=== PATIENT | female | born 1960 | race Caucasian/White ===

== ENCOUNTER → 2023-07-23 07:26 | Outpatient (REF) | payer OTHER, SELFPAY ==
[2023-07-23 08:10] LABS: % Basophils 0.3 % (0-2); % Eosinophils 3.7 % (0-6); % Immature Granulocytes 0.3 % (0-0.5); % Lymphocytes 34.7 % (20.5-51.1); % Monocytes 5.9 % (1.7-9.3); % Neutrophils 55.1 % (42.2-75.2); Absolute Eosinophils 0.2 10^3/uL (0-0.7); Absolute Lymphocytes 2.2 10^3/uL (1.2-3.4); Absolute Monocytes 0.4 10^3/uL (0.1-0.6); Absolute Neutrophils 3.5 10^3/uL (1.4-6.5); Hematocrit 41.9 % (37.0-47.0); Hemoglobin 14.3 g/dL (12.0-16.0); Mean Corp Hgb Conc. 34.1 g/dL (33.0-37.0); Mean Corpuscular Hgb 33.5 pg (27.0-31.0); Mean Corpuscular Volume 98.1 fL (81.0-99.0); Mean Platelet Volume 9.8 fL (7.4-10.4); Nucleated Red Blood Cells % 0 %; Platelet Count 248 10^3/uL (130-400); Red Blood Cell Count 4.27 10^6/uL (4.20-5.40); Red Cell Dist. Width 12.1 % (11.5-14.5); White Blood Cell Count 6.3 10^3/uL (4.8-10.8)
[2023-07-23 08:37] LABS: ALT (SGPT) 29 U/L (0-35); AST (SGOT) 38 U/L (14-36); Albumin 4.8 g/dl (3.5-5.0); Alkaline Phosphatase 81 U/L (38-126); Blood Urea Nitrogen 15 mg/dl (7-17); Calcium 9.4 mg/dl (8.4-10.2); Carbon Dioxide 28 mmol/L (22-30); Chloride 102 mmol/L (98-107); Glucose 106 mg/dl (70-99); HDL Cholesterol 68 mg/dl; Iron 107 ug/dl (37-170); LDL Cholesterol, Calculated 62 mg/dl; Potassium 3.9 mmol/L (3.5-5.1); Sodium 141 mmol/L (135-145); Total Bilirubin 0.6 mg/dl (0.2-1.3); Total Cholesterol 140 mg/dl (50-199); Total Protein 7.7 g/dl (6.3-8.2); Triglyceride 54 mg/dl (10-149); Very Low Density Lipoprotein 10 mg/dl (0-30); eGFR > 60.00
[2023-07-23 08:45] LABS: Percent Saturation 29 % (20-50); Total Iron Binding Capacity 362 ug/dl (265-497)
[2023-07-23 08:54] LABS: Vitamin D, 25-OH*** 56.9 ng/mL (30-80)
[2023-07-23 09:07] LABS: TSH Reflex To Free T4 2.04 uIU/ml (0.47-4.68)
[2023-07-23 09:27] LABS: Vitamin B12 396 pg/ml (239-931)
== END ==
LOC: RAD 07:26
PROVIDERS: ATTENDING PHYSICIAN Nurse Practitioner Family
DX: R91.1 Solitary pulmonary nodule (principal); F41.1 Generalized anxiety disorder; R53.82 Chronic fatigue, unspecified; K21.9 Gastro-esophageal reflux disease without esophagitis; E55.9 Vitamin D deficiency, unspecified; E78.2 Mixed hyperlipidemia; M85.89 Other specified disorders of bone density and structure, multiple sites
CPT/HCPCS: 36415; 71250; 80053; 80061; 82306; 82607; 82728; 83540; 83550; 84443; 85025

== ENCOUNTER → 2023-09-11 09:59 | Outpatient (REF) | payer OTHER, SELFPAY ==
[2023-09-11 13:07] LABS: Cortisol, Random 8.6 ug/dl
[2023-09-11 14:35] LABS: Glycohemoglobin (HgbA1c) 5.3 % (4.0-5.6)
== END ==
LOC: REG 09:59
PROVIDERS: ATTENDING PHYSICIAN Nurse Practitioner Family
DX: R73.01 Impaired fasting glucose (principal); R53.82 Chronic fatigue, unspecified
CPT/HCPCS: 36415; 82533; 83036

== ENCOUNTER → 2023-11-23 11:39 | Outpatient (REF) | payer OTHER, SELFPAY ==
[2023-11-23 14:58] LABS: % Basophils 0.3 % (0-2); % Eosinophils 2.3 % (0-6); % Immature Granulocytes 0.3 % (0-0.5); % Lymphocytes 27.8 % (20.5-51.1); % Monocytes 5.7 % (1.7-9.3); % Neutrophils 63.6 % (42.2-75.2); Absolute Eosinophils 0.2 10^3/uL (0-0.7); Absolute Lymphocytes 1.8 10^3/uL (1.2-3.4); Absolute Monocytes 0.4 10^3/uL (0.1-0.6); Absolute Neutrophils 4.1 10^3/uL (1.4-6.5); Hematocrit 36.7 % (37.0-47.0); Mean Corp Hgb Conc. 35.4 g/dL (33.0-37.0); Mean Corpuscular Hgb 34.1 pg (27.0-31.0); Mean Corpuscular Volume 96.3 fL (81.0-99.0); Mean Platelet Volume 10.1 fL (7.4-10.4); Nucleated Red Blood Cells % 0 %; Platelet Count 209 10^3/uL (130-400); Red Blood Cell Count 3.81 10^6/uL (4.20-5.40); White Blood Cell Count 6.5 10^3/uL (4.8-10.8)
[2023-11-23 15:44] LABS: ALT (SGPT) 29 U/L (0-35); AST (SGOT) 37 U/L (14-36); Albumin 4.6 g/dl (3.5-5.0); Alkaline Phosphatase 79 U/L (38-126); Blood Urea Nitrogen 16 mg/dl (7-17); Calcium 9.4 mg/dl (8.4-10.2); Carbon Dioxide 28 mmol/L (22-30); Chloride 105 mmol/L (98-107); Glucose 84 mg/dl (70-99); HDL Cholesterol 63 mg/dl; Iron 160 ug/dl (37-170); LDL Cholesterol, Calculated 86 mg/dl; Potassium 3.9 mmol/L (3.5-5.1); Sodium 140 mmol/L (135-145); Total Bilirubin 0.9 mg/dl (0.2-1.3); Total Cholesterol 163 mg/dl (50-199); Total Protein 7.2 g/dl (6.3-8.2); Triglyceride 72 mg/dl (10-149); Very Low Density Lipoprotein 14 mg/dl (0-30); eGFR > 60.00
[2023-11-23 15:56] LABS: C-Reactive Protein < 5.00 mg/L (0.0-10.00); Percent Saturation 47 % (20-50); Total Iron Binding Capacity 334 ug/dl (265-497)
[2023-11-23 16:19] LABS: Free T3 3.12 pg/ml (2.77-5.27); Free T4 0.95 ng/dl (0.78-2.19); Vitamin D, 25-OH*** 56.6 ng/mL (30-80)
[2023-11-23 16:22] LABS: Cortisol, Random 6.9 ug/dl; TSH 1.79 uIU/ml (0.47-4.68)
[2023-11-23 16:26] LABS: Ferritin 91.5 ng/ml (11.1-264.0)
[2023-11-23 16:58] LABS: Folate > 20.0 ng/ml (2.76-20); Vitamin B12 385 pg/ml (239-931)
[2023-11-23 19:03] LABS: Progesterone 0.27 ng/ml
[2023-11-23 19:19] LABS: Estradiol 15.5 pg/ml
[2023-11-24 08:57] LABS: Glycohemoglobin (HgbA1c) 5.3 % (4.0-5.6)
[2023-11-25 17:49] LABS: Thyroid Peroxidase Ab (TPO) 16.4 IU/mL (0.0-9.0)
[2023-11-25 18:06] LABS: Thyroglobulin 3.1 ng/mL (1.3-31.8); Thyroglobulin Antibodies <0.9 IU/mL (0.0-4.0)
[2023-11-25 22:09] LABS: EBV-EA (D) Ab IgG >150.0 U/mL (0.0-10.9); EBV-VCA IgM Antibodies <10.0 U/mL (0.0-43.9)
[2023-11-25 23:32] LABS: Insulin, Random 3 uIU/mL
[2023-11-26 01:18] LABS: ANA, IgG Reflex to HEp-2 None Detected (None Detected)
[2023-11-26 02:00] LABS: DHEA Sulfate 58 ug/dL (19-205)
== END ==
LOC: REG 11:39
DX: Z13.89 Encounter for screening for other disorder (principal); E27.9 Disorder of adrenal gland, unspecified; K90.89 Other intestinal malabsorption; E55.9 Vitamin D deficiency, unspecified; R53.81 Other malaise; Z13.1 Encounter for screening for diabetes mellitus; N95.1 Menopausal and female climacteric states; Z79.899 Other long term (current) drug therapy
CPT/HCPCS: 36415; 80053; 80061; 82306; 82533; 82607; 82627; 82670; 82728; 82746; 83036; 83525; 83540; 83550; 83735; 84144; 84270; 84402; 84403; 84432; 84439; 84443; 84481; 84630; 85025; 86038; 86140; 86376; 86618; 86663; 86664; 86665; 86800

== ENCOUNTER → 2023-11-25 09:38 | Outpatient (REF) | payer OTHER, SELFPAY | LOC: WDC 09:38 | PROVIDERS: ATTENDING PHYSICIAN Nurse Practitioner Women's Health; FAMILY PHYSICIAN Internal Medicine Geriatric Medicine | DX: N64.4 Mastodynia (principal) | CPT/HCPCS: 76642; 77061; 77065 ==

== ENCOUNTER → 2023-12-29 10:56 | Outpatient (REF) | payer OTHER, SELFPAY | LOC: REG 10:56 | DX: Z13.89 Encounter for screening for other disorder (principal); E27.9 Disorder of adrenal gland, unspecified; K90.89 Other intestinal malabsorption; E55.9 Vitamin D deficiency, unspecified; R53.81 Other malaise; Z13.1 Encounter for screening for diabetes mellitus; N95.1 Menopausal and female climacteric states; Z79.899 Other long term (current) drug therapy | CPT/HCPCS: 36415 ==

== ENCOUNTER → 2024-01-28 13:45 | Outpatient (REF) | payer MEDICARE, SELFPAY | LOC: MRI 3T 13:45 | PROVIDERS: ATTENDING PHYSICIAN Surgery; FAMILY PHYSICIAN Nurse Practitioner Primary Care | DX: N64.4 Mastodynia (principal); Q83.9 Congenital malformation of breast, unspecified | CPT/HCPCS: 77049; A9585 ==

== ENCOUNTER → 2024-08-11 10:50 | Outpatient (REF) | payer MEDICARE, SELFPAY | LOC: HWRAD 10:50 | PROVIDERS: ATTENDING PHYSICIAN Internal Medicine Critical Care Medicine; FAMILY PHYSICIAN Internal Medicine Geriatric Medicine | DX: R91.1 Solitary pulmonary nodule (principal) | CPT/HCPCS: 71250 ==

== ENCOUNTER → 2024-10-28 16:43 | Outpatient (REF) | payer MEDICARE, SELFPAY | LOC: MRI 3T 16:43 | PROVIDERS: ATTENDING PHYSICIAN Surgery; FAMILY PHYSICIAN Internal Medicine Geriatric Medicine | DX: Q83.9 Congenital malformation of breast, unspecified (principal) | CPT/HCPCS: 77049; A9585 ==

== ENCOUNTER → 2024-12-06 12:23 | Outpatient (REF) | payer MEDICARE, SELFPAY ==
[2024-12-06 12:58] LABS: Hematocrit 39.2 % (37.0-47.0); Hemoglobin 13.5 g/dL (12.0-16.0); Mean Corp Hgb Conc. 34.4 g/dL (33.0-37.0); Mean Corpuscular Volume 96.8 fL (81.0-99.0); Nucleated Red Blood Cells % 0 %; Platelet Count 211 10^3/uL (130-400); Red Cell Dist. Width 12.2 % (11.5-14.5)
[2024-12-06 14:13] LABS: Glycohemoglobin (HgbA1c) 5.2 % (4.0-5.6)
[2024-12-06 15:47] LABS: C-Reactive Protein < 5.00 mg/L (0.0-10.00)
[2024-12-06 16:12] LABS: ALT (SGPT) 26 U/L (0-35); AST (SGOT) 31 U/L (14-36); Albumin 4.7 g/dl (3.5-5.0); Alkaline Phosphatase 71 U/L (38-126); Blood Urea Nitrogen 15 mg/dl (7-17); Calcium 9.4 mg/dl (8.4-10.2); Carbon Dioxide 29 mmol/L (22-30); Chloride 104 mmol/L (98-107); Glucose 84 mg/dl (70-99); Potassium 4.8 mmol/L (3.5-5.1); Sodium 140 mmol/L (135-145); Total Protein 7.3 g/dl (6.3-8.2); eGFR > 60.00
[2024-12-06 16:18] LABS: Cortisol, Random 6.8 ug/dl
[2024-12-08 15:31] LABS: Lyme Antibody Screen, EIA Negative (Negative)
== END ==
LOC: REG 12:23
PROVIDERS: ATTENDING PHYSICIAN Dermatology; FAMILY PHYSICIAN Internal Medicine Geriatric Medicine; OTHER PHYSICIAN Nurse Practitioner Family
DX: R53.83 Other fatigue (principal); R50.9 Fever, unspecified; A93.8 Other specified arthropod-borne viral fevers; R73.01 Impaired fasting glucose
CPT/HCPCS: 36415; 80053; 82533; 83036; 85025; 85652; 86140; 86618

== ENCOUNTER → 2025-02-03 08:55 | Outpatient (REF) | payer MEDICARE, SELFPAY | LOC: RAD 08:55 | PROVIDERS: ATTENDING PHYSICIAN Otolaryngology; FAMILY PHYSICIAN Internal Medicine Geriatric Medicine | DX: R05.3 Chronic cough (principal); J32.0 Chronic maxillary sinusitis | CPT/HCPCS: 70220; 71046 ==

== ENCOUNTER → 2025-02-22 15:09 | Outpatient (REF) | payer MEDICARE, SELFPAY ==
[2025-02-23 14:55] LABS: Urine Character Clear (Clear)
[2025-02-23 17:57] LABS: Urine Squamous Cell 0-2 /LPF (Few)
[2025-02-23 17:58] LABS: Urine Red Blood Cell 0-2 /HPF (0-2); Urine White Cell 0-2 /HPF (0-5)
== END ==
LOC: CLAB 15:09
PROVIDERS: ATTENDING PHYSICIAN Specialist
DX: R31.29 Other microscopic hematuria (principal)
CPT/HCPCS: 81003; 81015

== ENCOUNTER → 2025-03-14 09:19 | Outpatient (REF) | payer MEDICARE, SELFPAY | LOC: HWRAD 09:19 | PROVIDERS: ATTENDING PHYSICIAN Specialist; FAMILY PHYSICIAN Internal Medicine Geriatric Medicine | DX: R31.29 Other microscopic hematuria (principal) | CPT/HCPCS: 76775 ==